=== PATIENT | male | born 1970 | race Caucasian/White ===

== ENCOUNTER 2020-04-26 14:02 | Emergency (ER) | payer BC ==
[2020-04-26 14:11] VITALS: RESP 16; TEMP 98.5
[2020-04-26 14:21] LABS: Glucose,Whole Blood 172 mg/dL (75-99)
--- NOTE | 2020-04-26 14:40 | ED ---
Neuro HPI - General Chief Complaint: Neuro Symptoms/Deficit Stated Complaint: poss TIA Time Seen by Provider: 04/26/20 14:20 Source: patient, RN notes reviewed Mode of arrival: wheelchair Limitations: no limitations - History of Present Illness Is the patient presenting with stroke symptoms?: No Initial Comments: This is a 49-year-old male with a benign past medical history who states he had the onset yesterday of some drooping of his right eye and numbness is right side of his face. He states he got worse today. He states a coworker did notice this. He came in for evaluation he denies any headache blurry vision he states his right eye feels a little bit dry he's also having trouble swallowing he has liquid will droop on the right side was mouth. Benign further questioning and no difficulty with actual swallowing. No loss of function is upper or lower extremities no other modifying factors no recent illnesses. He's on no blood thinners. He is a nonsmoker. No other modifying factors - Related Data Home Medications: Home Medications Medication Instructions Recorded Confirmed Atorvastatin [Lipitor] 20 mg PO HS 04/26/20 04/26/20 glipiZIDE XL [Glucotrol Xl] 5 mg PO DAILY 04/26/20 04/26/20 metFORMIN HCL ER [Glucophage Xr] 500 mg PO HS 04/26/20 04/26/20 Previous Rx's Medication Instructions Recorded predniSONE [Deltasone] 40 mg PO BID #14 tab 04/26/20 valACYclovir HCL [Valacyclovir] 1,000 mg PO TID #21 tab 04/26/20 Allergies/Adverse Reactions: Allergies Allergy/AdvReac Type Severity Reaction Status Date / Time No Known Allergies Allergy Verified 04/26/20 15:13 Review of Systems ROS Statement: Those systems with pertinent positive or pertinent negative responses have been documented in the HPI. ROS Other: All systems not noted in ROS Statement are negative. General Exam - General Exam Comments Initial Comments: This is a well-developed well-nourished awake alert oriented 3 male Limitations: no limitations General appearance: alert, in no apparent distress Head exam: Present: atraumatic, normocephalic, normal inspection Eye exam: Present: PERRL, EOMI, other (Evidence of right lid lag). Absent: scleral icterus, conjunctival injection, periorbital swelling ENT exam: Present: mucous membranes moist, other (Right-sided facial asymmetry with flattening of nasolabial fold the forehead is included in the weakness the right side of the face.) Neck exam: Present: normal inspection, full ROM, other (No stridor JVD or bruits). Absent: tenderness, meningismus, lymphadenopathy Respiratory exam: Present: normal lung sounds bilaterally. Absent: respiratory distress, wheezes, rales, rhonchi, stridor Cardiovascular Exam: Present: regular rate, normal rhythm, normal heart sounds. Absent: systolic murmur, diastolic murmur, rubs, gallop, clicks GI/Abdominal exam: Present: soft, normal bowel sounds. Absent: distended, tenderness, guarding, rebound, rigid Extremities exam: Present: normal inspection, full ROM, normal capillary refill. Absent: tenderness, pedal edema, joint swelling, calf tenderness Back exam: Present: normal inspection Neurological exam: Present: alert, oriented X3, CN II-XII intact Psychiatric exam: Present: normal affect, normal mood Skin exam: Present: warm, dry, intact, normal color. Absent: rash Stroke MDM - Lab Data Result diagrams: 04/26/20 14:22 04/26/20 14:22 Lab Results 04/26/20 04/26/20 04/26/20 Range/Units 14:20 14:22 14:22 WBC 6.9 (3.8-10.6) k/uL RBC 5.15 (4.30-5.90) m/uL Hgb 14.5 (13.0-17.5) gm/dL Hct 44.1 (39.0-53.0) % MCV 85.5 (80.0-100.0) fL MCH 28.1 (25.0-35.0) pg MCHC 32.9 (31.0-37.0) g/dL RDW 13.5 (11.5-15.5) % Plt Count 161 (150-450) k/uL Neutrophils % 55 % Lymphocytes % 33 % Monocytes % 5 % Eosinophils % 4 % Basophils % 1 % Neutrophils # 3.8 (1.3-7.7) k/uL Lymphocytes # 2.3 (1.0-4.8) k/uL Monocytes # 0.3 (0-1.0) k/uL Eosinophils # 0.3 (0-0.7) k/uL Basophils # 0.1 (0-0.2) k/uL PT 9.6 (9.0-12.0) sec INR 0.9 (<1.2) APTT 22.6 (22.0-30.0) sec Sodium (137-145) mmol/L Potassium (3.5-5.1) mmol/L Chloride (98-107) mmol/L Carbon Dioxide (22-30) mmol/L Anion Gap mmol/L BUN (9-20) mg/dL Creatinine (0.66-1.25) mg/dL Est GFR (CKD-EPI)AfAm (>60 ml/min/1.73 sqM) Est GFR (CKD-EPI)NonAf (>60 ml/min/1.73 sqM) Glucose (74-99) mg/dL POC Glucose (mg/dL) 172 H (75-99) mg/dL POC Glu Meeting Facilitator Mckenzie Alvarenga Calcium (8.4-10.2) mg/dL Magnesium (1.6-2.3) mg/dL Total Bilirubin (0.2-1.3) mg/dL AST (17-59) U/L ALT (4-49) U/L Alkaline Phosphatase (38-126) U/L Creatine Kinase (55-170) U/L Troponin I (0.000-0.034) ng/mL Total Protein (6.3-8.2) g/dL Albumin (3.5-5.0) g/dL 04/26/20 04/26/20 Range/Units 14:22 14:22 WBC (3.8-10.6) k/uL RBC (4.30-5.90) m/uL Hgb (13.0-17.5) gm/dL Hct (39.0-53.0) % MCV (80.0-100.0) fL MCH (25.0-35.0) pg MCHC (31.0-37.0) g/dL RDW (11.5-15.5) % Plt Count (150-450) k/uL Neutrophils % % Lymphocytes % % Monocytes % % Eosinophils % % Basophils % % Neutrophils # (1.3-7.7) k/uL Lymphocytes # (1.0-4.8) k/uL Monocytes # (0-1.0) k/uL Eosinophils # (0-0.7) k/uL Basophils # (0-0.2) k/uL PT (9.0-12.0) sec INR (<1.2) APTT (22.0-30.0) sec Sodium 138 (137-145) mmol/L Potassium 4.0 (3.5-5.1) mmol/L Chloride 104 (98-107) mmol/L Carbon Dioxide 24 (22-30) mmol/L Anion Gap 10 mmol/L BUN 17 (9-20) mg/dL Creatinine 0.79 (0.66-1.25) mg/dL Est GFR (CKD-EPI)AfAm >90 (>60 ml/min/1.73 sqM) Est GFR (CKD-EPI)NonAf >90 (>60 ml/min/1.73 sqM) Glucose 176 H (74-99) mg/dL POC Glucose (mg/dL) (75-99) mg/dL POC Glu Meeting Facilitator ID Calcium 9.4 (8.4-10.2) mg/dL Magnesium 1.9 (1.6-2.3) mg/dL Total Bilirubin 0.2 (0.2-1.3) mg/dL AST 25 (17-59) U/L ALT 34 (4-49) U/L Alkaline Phosphatase 61 (38-126) U/L Creatine Kinase 232 H (55-170) U/L Troponin I <0.012 (0.000-0.034) ng/mL Total Protein 7.4 (6.3-8.2) g/dL Albumin 4.5 (3.5-5.0) g/dL - NIH Stroke Scale 1a. Level of Consciousness: (0) alert 1b. LOC Questions: (0) answers correctly 1c. LOC Commands: (0) performs tasks correctly 2. Best Gaze: (0) normal 3. Visual: (0) no visual loss 4. Facial Palsy: (1) minor paralysis 5a. Motor Arm Left: (0) no drift 5b. Motor Arm Right: (0) no drift 6a. Motor Leg Left: (0) no drift 6b. Motor Leg Right: (0) no drift 7. Limb Ataxia: (0) absent 8. Sensory: (0) normal 9. Best Language: (0) no aphasia 10. Dysarthria: (0) normal 11. 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 Patient be started on steroids and antiviral medication the emergency department is a follow-up with Dr. Pro. He is in agreement with this he has no further questions. - Radiology Data Radiology results: report reviewed (I did review the imaging and report no acute findings.), image reviewed - EKG Data -: EKG Interpreted by Me EKG shows normal: sinus rhythm (Sinus rhythm of 76. Interval 136 QRS duration 84 QT since QTC 380/427) Past Medical History Past Medical History: Diabetes Mellitus, Hyperlipidemia History of Any Multi-Drug Resistant Organisms: None Reported Past Surgical History: Tonsillectomy Additional Past Surgical History / Comment(s): cyst removed from tailbone, right meniscus, Past Psychological History: No Psychological Hx Reported Smoking Status: Never smoker Past Alcohol Use History: None Reported Past Drug Use History: None Reported Course Vital Signs 04/26/20 14:09 Temperature 98.5 F Pulse Rate 85 Respiratory 16 Rate Blood Pressure 170/81 O2 Sat by Pulse 98 Oximetry Disposition Clinical Impression: Carnes's palsy Disposition: HOME SELF-CARE Condition: Good Instructions (If sedation given, give patient instructions): Carnes Palsy (ED) Prescriptions: predniSONE [Deltasone] 40 mg PO BID #14 tab valACYclovir HCL [Valacyclovir] 1,000 mg PO TID #21 tab Is patient prescribed a controlled substance at d/c from ED?: No Referrals: Aron Pro DO [Primary Care Provider] - 1-2 days
[2020-04-26 14:43] LABS: Basophils # (A) 0.1 k/uL (0-0.2); Basophils % (A) 1 %; Eosinophils # (A) 0.3 k/uL (0-0.7); Eosinophils % (A) 4 %; HCT 44.1 % (39.0-53.0); HGB 14.5 gm/dL (13.0-17.5); Lymphocytes # (A) 2.3 k/uL (1.0-4.8); Lymphocytes % (A) 33 %; MCH 28.1 pg (25.0-35.0); MCHC 32.9 g/dL (31.0-37.0); MCV 85.5 fL (80.0-100.0); Mean Platelet Volume 8.8; Monocytes # (A) 0.3 k/uL (0-1.0); Monocytes % (A) 5 %; Neutrophils # (A) 3.8 k/uL (1.3-7.7); Neutrophils % (A) 55 %; Platelet Count 161 k/uL (150-450); RBC 5.15 m/uL (4.30-5.90); RDW 13.5 % (11.5-15.5); WBC 6.9 k/uL (3.8-10.6)
--- NOTE | 2020-04-26 14:58 | CT ---
EXAMINATION TYPE: CT brain wo con DATE OF EXAM: 04/26/2020 COMPARISON: None HISTORY: Right side facial droop CT DLP: 1178.4 mGycm Automated exposure control for dose reduction was used. FINDINGS: There is no acute intracranial hemorrhage, mass effect, or midline shift identified. The ventricles and sulci are within normal limits in size. The globes are intact and the visualized sinuses are lay ar. IMPRESSION: No acute intracranial hemorrhage, mass effect, or midline shift is seen. If there is concern for acut e ischemia correlate with MRI as clinically warranted.
[2020-04-26 14:59] LABS: INR 0.9 (<1.2); Partial Thromboplastin Time 22.6 sec (22.0-30.0); Prothrombin Time 9.6 sec (9.0-12.0)
--- NOTE | 2020-04-26 15:02 | XR ---
EXAMINATION TYPE: XR chest 2V DATE OF EXAM: 04/26/2020 COMPARISON: NONE HISTORY: Altered mental status TECHNIQUE: Frontal and lateral views of the chest are obtained. FINDINGS: There is no focal air space opacity, pleural effusion, or pneumothorax seen. The cardiac silhouette size is within normal limits. The osseous structures are intact. IMPRESSION: No acute cardiopulmonary process.
[2020-04-26 15:04] LABS: ALT 34 U/L (4-49); AST 25 U/L (17-59); African American GFR (CKD) >90 (>60 ml/min/1.73 sqM); Albumin 4.5 g/dL (3.5-5.0); Alkaline Phosphatase 61 U/L (38-126); Anion Gap 10 mmol/L; Blood Urea Nitrogen 17 mg/dL (9-20); Calcium 9.4 mg/dL (8.4-10.2); Carbon Dioxide 24 mmol/L (22-30); Chloride 104 mmol/L (98-107); Creatine Kinase 232 U/L (55-170); Glucose 176 mg/dL (74-99); Magnesium 1.9 mg/dL (1.6-2.3); Non-African American GFR(CKD) >90 (>60 ml/min/1.73 sqM); Sodium 138 mmol/L (137-145); Total Bilirubin 0.2 mg/dL (0.2-1.3); Total Protein 7.4 g/dL (6.3-8.2)
[2020-04-26] MEDS ORDERED: predniSONE 50 MG TAB PO STA (16:08)
[2020-04-26] MEDS ORDERED: valACYclovir HCL 1,000 MG TABLET PO STA (16:11)
[2020-04-26 16:50] VITALS: BP 136/82; PULSE 67
== END 2020-04-26 16:49 | disposition home or self-care (01) ==
LOC: EC 14:02
DX: G51.0 Bell's palsy (principal); E11.9 Type 2 diabetes mellitus without complications; E78.5 Hyperlipidemia, unspecified; Z79.84 Long term (current) use of oral hypoglycemic drugs; Z79.899 Other long term (current) drug therapy
CPT/HCPCS: 36415; 93005; 80053; 82550; 83735; 84484; 85025; 85610; 85730; 71046; 70450; 99284; J7512

== ENCOUNTER 2020-06-06 06:30 | Day surgery (SDC) | payer BC ==
[2020-06-02 12:20] VITALS: BMI 29.9
[~2020-06-06 06:30] MED LIST: LACTATED RINGERS 1,000 ML IV SCH; LIDOCAINE 1% (10MG/ML) FOR IV START INTRADERMA PRN
[2020-06-06 07:27] VITALS: TEMP 97.7
[2020-06-06 07:29] LABS: Glucose,Whole Blood 146 mg/dL (75-99)
[2020-06-06 08:02] VITALS: RESP 16
--- NOTE | 2020-06-06 08:04 | P.PCN ---
Date of Procedure: 06/06/20 Description of Procedure: BRIEF HISTORY: Patient is a 49-year-old male presenting for outpatient colonoscopy for screening given the above colon. No change in bowel habits bulb of [place] abdominal pain reported. No family history of colon cancer. No prior colonoscopy. PROCEDURE PERFORMED: Colonoscopy. PREOPERATIVE DIAGNOSIS: Screening for malignant neoplasm colon, no prior colonoscopy reported. ESTIMATED BLOOD LOSS: Minimal. IV sedation per Anesthesia. PROCEDURE: After informed consent was obtained, the patient, was brought into the endoscopy unit. IV sedation was administered by Anesthesia under continuous monitoring. Digital rectal examination was normal. Initially the Olympus CF-190 flexible video colonoscope was then inserted in the rectum, gradually advanced into the cecum without any difficulty. Careful examination was performed as the scope was gradually being withdrawn. Ileocecal valve and the appendiceal orifice were visualized and appeared normal. Prep was excellent. Mucosa of the cecum, ascending colon, transverse colon, descending colon, sigmoid colon, and rectum appeared normal. Retroflexion was performed in the rectum and no lesions were seen, low-grade internal morrhoids seen. The patient tolerated the procedure well. IMPRESSION: Normal-appearing colon from rectum to cecum. RECOMMENDATIONS: Findings of this examination were discussed with the patient. Okay to resume diet. Okay to resume medications. Would recommend repeat colonoscopy in 10 years for screening for malignant neoplasm colon, or sooner if any signs or symptoms which warrant further evaluation developed.
[2020-06-06 08:17] VITALS: BP 124/88; PULSE 89
== END 2020-06-06 08:38 | disposition home or self-care (01) ==
LOC: ORWHC2ENDO 06:30
PROVIDERS: ATTEND Internal Medicine
DX: Z12.11 Encounter for screening for malignant neoplasm of colon (principal); K64.8 Other hemorrhoids; E78.5 Hyperlipidemia, unspecified; E11.9 Type 2 diabetes mellitus without complications; Z87.891 Personal history of nicotine dependence; Z79.84 Long term (current) use of oral hypoglycemic drugs; Z79.899 Other long term (current) drug therapy; Z90.89 Acquired absence of other organs; Z98.890 Other specified postprocedural states
CPT/HCPCS: 45378

== ENCOUNTER → 2021-04-24 | Outpatient (CLI) | payer OTHER ==
--- NOTE | 2021-04-25 09:23 | US ---
EXAMINATION TYPE: US groin LT DATE OF EXAM: 04/24/2021 COMPARISON: NONE CLINICAL HISTORY: 50-year-old male K40.91 Unilateral inguinal hernia, without obstruc. Left groin pal pable per patient. No pain. TECHNIQUE: Multiple sonographic images of the left inguinal region without and with Valsalva. FINDINGS: Trend Investigator notes: Area of concern scanned. Possible hernia visualized in left groin= 0.9 cm. Valsa lva performed with movement seen. The typical landmarks used during assessment of inguinal hernia are not demonstrated. IMPRESSION: Limited exam. During real-time scanning, the vp emerging media notes movement of tissues at the symptomatic site with Valsalva maneuver. Inguinal hernia is not excluded.
== END | disposition home or self-care (01) ==
LOC: RADUSWWP 14:07
DX: K40.91 Unilateral inguinal hernia, without obstruction or gangrene, recurrent (principal)

== ENCOUNTER → 2022-05-11 | Outpatient (CLI) | payer BC | END | disposition home or self-care (01) | LOC: LABWHC1 07:24 | PROVIDERS: ATTEND Urology | DX: N52.9 Male erectile dysfunction, unspecified (principal) | CPT/HCPCS: 36415; 84403 ==